=== PATIENT | female | born 1995 | race Caucasian/White ===

== ENCOUNTER 2018-12-07 19:06 | Emergency (ER) | payer MEDICAID, OTHER ==
[~2018-12-07] VITALS: Ht 162.6 cm; Wt 99.8 kg
[2018-12-07 19:15] VITALS: BP 134/105
== END 2018-12-07 19:51 | disposition home or self-care (01) ==
LOC: ER 19:09
DX: B00.1 Herpesviral vesicular dermatitis (principal)

== ENCOUNTER 2019-02-07 16:19 | Emergency (ER) | payer OTHER ==
[~2019-02-07] VITALS: Ht 165.1 cm; Wt 99.3 kg
[2019-02-07 16:25] VITALS: BP 138/73
--- NOTE | 2019-02-07 16:29 | NUR ---
KALLIE MAHAN AT BEDSIDE FOR EVAL.
--- NOTE | 2019-02-07 16:58 | NUR ---
Patient discharged to home in stable condition. Written and verbal after care instructions given. Patient verbalizes understanding of instruction.
== END 2019-02-07 16:59 | disposition home or self-care (01) ==
LOC: ER 16:23
DX: H66.91 Otitis media, unspecified, right ear (principal); R42 Dizziness and giddiness

== ENCOUNTER 2019-03-23 14:50 | Emergency (ER) | payer OTHER ==
[~2019-03-23] VITALS: Ht 165.1 cm; Wt 99.8 kg
[2019-03-23] MEDS ORDERED: IBUPROFEN 600 MG TABLET PO ONE ×2 (15:30→15:34)
--- NOTE | 2019-03-23 15:36 | NUR ---
PT AAOX4. AMBULATORY WITH STEADY GAIT. VSS. C/O VAGINAL BLEEDING AND ABDOMINAL CRAMPING SINCE YESTERDAY, JUST HAD HER PERIOD X1 WEEK AGO. PLACED ON MONITOR AND PULSE OX. AT BEDSIDE FOR EVAL.
--- NOTE | 2019-03-23 15:39 | NUR ---
US AT BEDSIDE
[2019-03-23 16:10] LABS: BILIRUBIN,URINE Negative (NEGATIVE); BLOOD, URINE Large Ery/uL (NEGATIVE); KETONES,URINE Negative (NEGATIVE); LEUKOCYTE ESTERASE ,URINE Negative (NEGATIVE); NITRITE, URINE Negative (NEGATIVE); PROTEIN,URINE Negative (NEGATIVE); UGLUCOSE Negative (NEGATIVE); UROBILINOGEN,URINE 0.2 EU/dL (0.2)
[2019-03-23 16:15] LABS: APPEARANCE,URINE SLIGHTLY CLOUDY (CLEAR); COLOR,URINE DARK YELLOW (YELLOW)
[2019-03-23 16:23] LABS: BACTERIA,URINE Moderate /HPF (None Seen)
[2019-03-23 16:24] LABS: SQUAMOUS EPITHELIAL CELL,UR Moderate /HPF (None Seen)
[2019-03-23 16:39] VITALS: BP 128/72
--- NOTE | 2019-03-23 16:39 | NUR ---
Patient discharged to home in stable condition. Written and verbal after care instructions given. Patient verbalizes understanding of instruction. Pt ambulated with steady gait. vss.
== END 2019-03-23 16:40 | disposition home or self-care (01) ==
LOC: ER 14:50
DX: E28.2 Polycystic ovarian syndrome (principal); N93.8 Other specified abnormal uterine and vaginal bleeding; F17.200 Nicotine dependence, unspecified, uncomplicated
CPT/HCPCS: 36415; 76856-TC; 81000-TC; 84702-TC; 87086-TC

== ENCOUNTER 2021-07-30 14:44 | Emergency (ER) | payer OTHER ==
[~2021-07-30] VITALS: Ht 165.1 cm; Wt 102.1 kg
[2021-07-30 15:07] VITALS: BP 117/65
--- NOTE | 2021-07-30 15:07 | NUR ---
BIBS C/O LEFT FOOT PAIN AND SWELLING [id number] P/S 5/10 S/P TRIPPED AND FELL. VITALS ARE WITHIN NORMAL LIMTIS.
[2021-07-30] MEDS ORDERED: NAPR-1009 PO (17:01)
== END 2021-07-30 17:11 | disposition home or self-care (01) ==
LOC: ER 14:51
DX: S93.522A Sprain of metatarsophalangeal joint of left great toe, initial encounter (principal); F17.200 Nicotine dependence, unspecified, uncomplicated; W01.0XXA Fall on same level from slipping, tripping and stumbling without subsequent striking against object, initial encounter; Y93.89 Activity, other specified; Y92.89 Other specified places as the place of occurrence of the external cause; Y99.8 Other external cause status
CPT/HCPCS: 73630-TC

== ENCOUNTER 2023-07-23 10:07 | Emergency (ER) | payer OTHER ==
[~2023-07-23] VITALS: Ht 167.6 cm; Wt 102.1 kg
[~2023-07-23 10:07] MED LIST: NAPR-1009 PO
[2023-07-23 10:12] VITALS: BP 139/80; TEMP 98; O2SAT 98
[2023-07-23] MEDS ORDERED: dexaMETHasone SOD PHOSPHATE 1 ML ONE (12:52)
[2023-07-23] MEDS ORDERED: AMOX/CLAVULANATE 875 MG TABLET ONE (12:52)
[2023-07-23] MEDS ORDERED: KETOROLAC TROMETHAMINE 15 MG/ML VIAL ONE (12:52)
[2023-07-23] MEDS ORDERED: IBUP-1955 PO (12:54)
[2023-07-23] MEDS ORDERED: AMOX-430 PO (12:54)
[2023-07-23] MEDS: KETOROLAC TROMETHAMINE 15 MG/ML VIAL IM ONE (13:00)
[2023-07-23] MEDS: dexaMETHasone SOD PHOSPHATE 10 MG/ML VIAL IM ONE (13:02)
[2023-07-23] MEDS: AMOX/CLAVULANATE 875 MG TABLET PO ONE (13:05)
== END 2023-07-23 13:32 | disposition home or self-care (01) ==
LOC: ER 10:12
DX: J02.9 Acute pharyngitis, unspecified (principal); F10.10 Alcohol abuse, uncomplicated; F17.200 Nicotine dependence, unspecified, uncomplicated; Y90.9 Presence of alcohol in blood, level not specified
CPT/HCPCS: 99284; 96372 ×2; 87070; 87880; J1100; J1885; 86403-TC